=== PATIENT | male | born 1955 | race Caucasian/White ===

== ENCOUNTER 2016-08-15 13:51 | Emergency (ER) | payer OTHER ==
[2016-08-15 14:12] VITALS: BP 155/96
--- NOTE | 2016-08-15 15:04 | ED ---
ED Suture/Wound Check - HPI Summary HPI Summary: 61 year old male presents today for removal of 7 kay on frontal head/scalp. Patient states he has had them in for 9 days. He had them put in after lacerating his head on a steel beam. He has not had any issues with the healing wound. Denies any pain. Denies swelling, redness, dehiscence, bleeding, discharge or drainage and fever/chills. - History Of Current Complaint Chief Complaint: EDLacSutureRecheck Stated Complaint: SUTURE REMOVED Hx Obtained From: Patient Onset/Duration: Sudden Onset Surgical Site: head/scalp Pain Intensity: 0 Pain Scale Used: 0-10 Numeric Procedure Type: staple removal of healing laceration Head: 1 - healing 4cm wound - Allergies/Home Medications Allergies/Adverse Reactions: Allergies Allergy/AdvReac Type Severity Reaction Status Date / Time No Known Allergies Allergy Verified 08/06/16 08:09 PMH/Surg Hx/FS Hx/Imm Hx Previously Healthy: Yes Endocrine/Hematology History: Denies: Hx Diabetes Cardiovascular History: Reports: Hx Hypertension Infectious Disease History: No Infectious Disease History: Denies: Traveled Outside the [place] in Last 30 Days - Family History Known Family History: Positive: Cardiac Disease - Social History Alcohol Use: None Substance Use Type: Reports: None Smoking Status (MU): Never Smoked Tobacco Review of Systems Constitutional: Negative Negative: Fever, Chills Eyes: Negative ENT: Negative Cardiovascular: Negative Negative: Chest Pain Respiratory: Negative Negative: Shortness Of Breath Skin: Negative, Other - no signs of swelling, redness or discharge Neurological: Negative Negative: Headache All Other Systems Reviewed And Are Negative: Yes Physical Exam Triage Information Reviewed: Yes Vital Signs On Initial Exam: Initial Vitals Temp Pulse Resp BP Pulse Ox 98.1 F 70 16 155/96 99 08/15/16 14:11 08/15/16 14:11 08/15/16 14:11 08/15/16 14:11 08/15/16 14:11 Blood pressure slightly elevated. compared to previous visit, similar BP's. Patient has medical history of HTN. Vital Signs Reviewed: Yes Appearance: Positive: Well-Appearing, No Pain Distress, Well-Nourished Head/Face: Positive: Normal Head/Face Inspection - 4 cm healing wound appears clean, dry, without swelling, redness, discharge and dehiscence. good approximation. closed nicely. Eyes: Positive: Normal Neck: Positive: Supple Respiratory/Lung Sounds: Positive: Clear to Auscultation, Breath Sounds Present Cardiovascular: Positive: Normal, RRR Psychiatric: Positive: Normal Diagnostics - Vital Signs Vital Signs Temp Pulse Resp BP Pulse Ox 08/15/16 14:11 98.1 F 70 16 155/96 99 - Laboratory Lab Statement: Any lab studies that have been ordered have been reviewed, and results considered in the medical decision making process. Course/Dx - Course Course Of Treatment: 7 kay were removed from head/scalp using a staple removal without complications. Area was cleaned. Healing wound appeared dry and clean with good approximation. No swelling, redness or drainage noted. - Differential Diagnoses Differential Diagnoses: Dehiscence, Healing Wound, Suture Removal - staple removal - Clinical Impression Provider Diagnoses: Healing wound, Encounter for removal of kay Discharge - Discharge Plan Condition: Improved Disposition: HOME Patient Education Materials: Laceration (ED) Referrals: Rodney BEVERLY,Rocael Cardona [Primary Care Provider] - Additional Instructions: Keep area clean and dry. Dab dry rather than rub area. Let scab fall off on its ' own. If you develop a fever or wound starts to bleed, swell, or become red please seek medical attention for possible infection.
== END 2016-08-15 15:22 | disposition home or self-care (01) ==
LOC: ED 13:51
DX: Z48.02 Encounter for removal of sutures (principal); I10 Essential (primary) hypertension